=== PATIENT | female | born 1995 | race Caucasian/White ===

== ENCOUNTER 2023-01-11 22:08 | Emergency (ER) | payer OTHER ==
[~2023-01-11] VITALS: Ht 172.7 cm; Wt 145.1 kg
[2023-01-11 22:34] VITALS: BP 132/75
--- NOTE | 2023-01-11 22:43 | NUR ---
TO LOBBY FOLLOWING TRIAGE
[2023-01-11] MEDS ORDERED: DEXAMETHASONE 10 MG/ML VIAL IM ONE (23:05)
[2023-01-11] MEDS ORDERED: KETOROLAC 30 MG/ML VIAL IM ONE (23:05)
[2023-01-11] MEDS ORDERED: ACETAMINOPHEN EXTRA STRENGTH 500 MG TAB PO ONE (23:10)
--- NOTE | 2023-01-11 23:10 | NUR ---
PT TO BED 03
--- NOTE | 2023-01-11 23:10 | NUR ---
PT. POSITIONED ON BED COMFORTABLY, A/OX4, NOT IN DISTRESS, WITH FEVER
[2023-01-11] MEDS ORDERED: BENZ-300 PO (23:47)
[2023-01-11] MEDS ORDERED: IBUP-2218 PO (23:47)
[2023-01-11] MEDS ORDERED: ACET-9882 PO (23:47)
--- NOTE | 2023-01-12 00:06 | NUR ---
STREP SWAB AND FLU SWAB DONE
--- NOTE | 2023-01-12 00:09 | NUR ---
RESTING ON BED WITH PAIN SCALE OF "4/10". NOT IN DISTRESS
[2023-01-12] MEDS ORDERED: ACETAMINOPHEN EXTRA STRENGTH 500 MG TAB PO ONE (00:15)
[2023-01-12] MEDS ORDERED: ACETAMINOPHEN EXTRA STRENGTH 500 MG TAB ONE (00:20)
[2023-01-12 00:23] VITALS: BP 121/74
== END 2023-01-12 00:22 | disposition home or self-care (01) ==
LOC: MED 22:08
DX: B34.9 Viral infection, unspecified (principal); J02.9 Acute pharyngitis, unspecified; R03.0 Elevated blood-pressure reading, without diagnosis of hypertension; Z79.899 Other long term (current) drug therapy; Z88.1 Allergy status to other antibiotic agents; Z88.8 Allergy status to other drugs, medicaments and biological substances
CPT/HCPCS: 81025; 87081; 87804; 96372; 99284; J1100; J1885